=== PATIENT | female | born 1970 | race Caucasian/White ===

== ENCOUNTER 2018-08-24 13:16 | Emergency (ER) | payer OTHER, MEDICAID ==
[~2018-08-24] VITALS: Ht 170.2 cm; Wt 83.5 kg
[~2018-08-24 13:16] MED LIST: ALBU2.5V11 MC; ALBU8.5H4 IH
[2018-08-24 13:33] VITALS: BP 142/87
[2018-08-24] MEDS ORDERED: LIDOCAINE HCL/MPF 1% 30 ML VIAL IJ ONE (13:53)
[2018-08-24] MEDS ORDERED: LIDOCAINE /MPF 1% VIAL 5 ML VIAL TP ONE (14:00)
[2018-08-24] MEDS ORDERED: ACETAMINOPHEN ES 500 MG TABLET PO ONE (14:00)
[2018-08-24] MEDS ORDERED: TDAP [DIPH/PERTUSSIS/TET] 0.5 ML VIAL IM ONE ×2 (14:00→14:11)
[2018-08-24] MEDS ORDERED: ACETAMINOPHEN 325 MG TABLET ONE (14:11)
[2018-08-24] MEDS ORDERED: ACETAMINOPHEN ES 500 MG TABLET ONE (14:12)
== END 2018-08-24 14:26 ==
LOC: ER 13:17
DX: S41.112A Laceration without foreign body of left upper arm, initial encounter (principal); J45.909 Unspecified asthma, uncomplicated; Z88.1 Allergy status to other antibiotic agents; Z79.899 Other long term (current) drug therapy; Y08.89XA Assault by other specified means, initial encounter; Y93.89 Activity, other specified; Y92.89 Other specified places as the place of occurrence of the external cause; Y99.8 Other external cause status
CPT/HCPCS: 12002; 90471; 90715; 99283; A6403; J3490

== ENCOUNTER 2019-05-13 18:27 | Emergency (ER) | payer MEDICAID, OTHER ==
[~2019-05-13] VITALS: Ht 165.1 cm; Wt 65.8 kg
--- NOTE | 2019-05-13 19:00 | NUR ---
PT BIBS. C/O "HAVING HEADACHE FOR AROUND X3 DAYS NOW" +N/V AOX4. VSS. AMBULATORY
[2019-05-13] MEDS ORDERED: KETOROLAC TROMETHAMINE INJ 30 MG/ML VIAL IV ONE (19:30)
[2019-05-13] MEDS ORDERED: PROCHLORPERAZINE EDISYLATE 10 MG/2 ML VIAL IVP ONE (19:30)
[2019-05-13] MEDS ORDERED: diphenhydrAMINE HCL 50 MG/ML VIAL IV ONE (19:30)
[2019-05-13] MEDS ORDERED: IV NS 0.9% 1,000 ML BAG IV ONE (19:30)
[2019-05-13] MEDS ORDERED: DEXAMETHASONE SOD PHOSPHATE 4 MG/ML VIAL IV ONE (19:30)
[2019-05-13] MEDS ORDERED: diphenhydrAMINE HCL 50 MG/ML VIAL ONE (20:08)
[2019-05-13] MEDS ORDERED: DEXAMETHASONE SOD PHOSPHATE 10 MG/ML VIAL ONE (20:08)
[2019-05-13] MEDS ORDERED: KETOROLAC TROMETHAMINE INJ 30 MG/ML VIAL ONE (20:09)
[2019-05-13] MEDS ORDERED: PROCHLORPERAZINE EDISYLATE 10 MG/2 ML VIAL ONE (20:09)
--- NOTE | 2019-05-13 20:59 | NUR ---
Patient is resting comfortably in bed with eyes closed. Easily aroused. VSS. -ACUTE DISTRESS NOTED. AOX4.
[2019-05-13] MEDS ORDERED: LORAZEPAM INJ 2 MG/ML VIAL ONE (21:25)
[2019-05-13] MEDS ORDERED: LORAZEPAM INJ 2 MG/ML VIAL IV ONE (21:30)
[2019-05-13 22:27] VITALS: BP 131/81
== END 2019-05-13 22:27 | disposition home or self-care (01) ==
LOC: ER 18:48
DX: G43.909 Migraine, unspecified, not intractable, without status migrainosus (principal); J45.909 Unspecified asthma, uncomplicated; Z88.1 Allergy status to other antibiotic agents; Z60.2 Problems related to living alone; Z79.899 Other long term (current) drug therapy
CPT/HCPCS: 87804 ×2; 96374; 96375; 99283; J0780; J1100; J1200; J1885; J2060; J7030